=== PATIENT | female | born 1965 | race African-American/Black ===

== ENCOUNTER → 2017-04-24 | Outpatient (CLI) | payer OTHER ==
[~2017-04-24] MED LIST: FLEXERIL PO; IBUPROFEN 800800 MG PO; NAPROSYN500 MG PO; TRAMADOL 50 MG50 MG PO; ZYRTEC10 M5 PO
== END ==
LOC: RAD 01:49
DX: Z12.31 Encounter for screening mammogram for malignant neoplasm of breast (principal)

== ENCOUNTER → 2018-05-13 | Outpatient (CLI) | payer OTHER ==
[~2018-05-13] VITALS: Ht 162.6 cm; Wt 85.7 kg
[~2018-05-13] MED LIST changes: +ALEVE220 MG PO; +MULTI VITAMIN1 EACH PO
--- NOTE | ~2018-05-13 | P ---
[facility] [place] [address] PROCEDURE REPORT Name: LIZETT RENTERIA Room #: [facility].#: [id number] Admission: 05/13/18 Attend Phys: Rosendo Camargo Discharge: Date of : 65 Report #: [id number] THIS REPORT FOR: //name// CC: Rosendo Paz MD DATE OF SERVICE: 05/13/2018 PROCEDURE PERFORMED: Colonoscopy. HISTORY OF PRESENT ILLNESS: The patient is a 52-year-old female who presents today for routine screening colonoscopy. No previous history of colonoscopy. No symptoms, no family history of colon cancer. DESCRIPTION OF PROCEDURE: The risks and benefits of the procedure were explained to the patient, those risks including but not limited to bleeding, perforation, the risk of sedation. She understood these risks and gave informed consent. Sedation was given using propofol per Anesthesia. Next, a digital rectal exam was initially performed, which was normal. Next, using a standard Olympus colonoscope, the scope was placed in the patient's anus and advanced under direct vision to the cecum. The overall prep was excellent. The cecum and ileocecal valve were normal in appearance. The ascending, transverse, descending and sigmoid colon were all normal. The rectal mucosa was normal. On retroflexion, no abnormalities were noted. Scope was then withdrawn and the procedure terminated. The patient tolerated the procedure well. IMPRESSION: Normal colonoscopy. RECOMMENDATIONS: Repeat colonoscopy in 10 years. Thank you for allowing me to participate in her care. <ELECTRONICALLY SIGNED> By: Rosendo Resendez MD 05/14/18 1139 [id number] Rosendo Resendez MD /nt
== END | disposition home or self-care (01) ==
LOC: GI 06:53
DX: Z12.11 Encounter for screening for malignant neoplasm of colon (principal); Z98.890 Other specified postprocedural states; Z86.79 Personal history of other diseases of the circulatory system
CPT/HCPCS: 62110; 62900

== ENCOUNTER → 2020-01-21 | Outpatient (CLI) | payer OTHER | LOC: LAB 08:53 | PROVIDERS: ATTEND Family Medicine | DX: U07.1 COVID-19 (principal) ==

== ENCOUNTER → 2021-02-16 | Outpatient (CLI) | payer OTHER | LOC: RAD 10:34 | PROVIDERS: ATTEND Family Medicine | DX: M17.0 Bilateral primary osteoarthritis of knee (principal); G89.29 Other chronic pain; M11.262 Other chondrocalcinosis, left knee; M11.261 Other chondrocalcinosis, right knee; M25.561 Pain in right knee; M25.562 Pain in left knee ==

== ENCOUNTER → 2021-02-28 | Outpatient (CLI) | payer OTHER | LOC: ULTRA 08:19 | PROVIDERS: ATTEND Family Medicine | DX: M79.89 Other specified soft tissue disorders (principal) ==

== ENCOUNTER → 2021-04-20 | Outpatient (CLI) | payer OTHER | LOC: MRI 04-18 13:11 | PROVIDERS: ATTEND Orthopaedic Surgery | DX: M22.42 Chondromalacia patellae, left knee (principal); M25.562 Pain in left knee ==